=== PATIENT | male | born 1965 | race Caucasian/White ===

== ENCOUNTER 2023-06-11 08:06 | Outpatient (AMB) | payer BC, SELFPAY ==
--- NOTE | 2023-06-11 08:08 | MHC.OFFWIV ---
Intake Vital Signs 06/11/23 08:09 Height 5 ft 9 in Weight 204 lb BMI 30.1 BP 120/80 Blood Pressure Location Rt brachial Position Sitting Pulse 70 Pulse Source Pulse Oximeter Pulse Oximetry (%) 97 Oxygen Delivery Method Room Air Intake Visit Reasons: EP Abscess back of neck Intake Note: Patient here for abcess on right side of back of the head that has been present for about 1 week. Patient Tobacco Use Status: Former Tobacco user Allergies No Known Allergies Allergy (Verified 06/11/23 08:15) Medication List - Last Reconciled 06/11/23 by Jeffry Coronel MD No Known Home Meds Do you need a note to return to daycare/school/sports/work: No HPI EP Abscess back of neck HPI Details 57-year-old male presents to the office for a sick visit. Patient has a swelling on the back of the neck. It has been present for the past week. Patient has had a small pimple in that area for a couple years. The swelling has been painful since the past week. PFSH Social History Patient Tobacco Use Status: Former Tobacco user Physical Exam Vital Signs: Last Vital Signs Pulse 70 06/11/23 08:09 BP 120/80 06/11/23 08:09 Pulse Ox 97 06/11/23 08:09 Oxygen Delivery Method Room Air 06/11/23 08:09 BMI result Body Mass Index 30.1 Skin Other: Posterior surface of the neck, in the scalp area. Three centimetres injury rated area, no fluctuation. , slightly tender to touch. Assessment & Plan Assessment & Plan (1) Cellulitis of scalp: Code(s): L03.811 - Cellulitis of head [any part, except face] Plan: Antibiotics called in. Patient was advised to use warm compress. If symptoms do not improve to follow-up here. Coding Level of Care Code Est Pt Level 3 (58123) Diagnoses Cellulitis of scalp L03.811
[2023-06-11 08:09] VITALS: BP 120/80; PULSE 70; O2SAT 97; BMI 30.1
== END 2023-06-11 08:37 | disposition home or self-care (01) ==
PROVIDERS: PCP Nurse Practitioner Family; Visit Provider Internal Medicine
DX: L03.811 Cellulitis of head [any part, except face] (principal)
CPT/HCPCS: 99213

== ENCOUNTER 2023-06-18 08:00 | Outpatient (AMB) | payer BC, SELFPAY ==
[2023-06-18 08:02] VITALS: BP 130/78; PULSE 76; TEMP 36.6; O2SAT 97; BMI 30.3
--- NOTE | 2023-06-18 08:02 | MHC.OFFWIV ---
Intake Vital Signs 06/18/23 08:02 Height 5 ft 9 in Weight 205 lb 2 oz BMI 30.3 BP 130/78 Blood Pressure Location Lt brachial Position Sitting Pulse 76 Pulse Source Pulse Oximeter Temp 97.9 F Temp Source Temporal Artery Scan Pulse Oximetry (%) 97 Intake Visit Reasons: EP, abscess on back of neck, not getting better Intake Note: pt is here for c/o abscess on back of neck not getting better Patient Tobacco Use Status: Former Tobacco user Allergies No Known Allergies Allergy (Verified 06/18/23 08:26) Do you need a note to return to daycare/school/sports/work: Yes HPI EP, abscess on back of neck, not getting better HPI Details 57-year-old male presents to the office for a sick visit.. Patient reports that antibiotics were not of much help and the swelling has gotten bigger. Painful to touch. PFSH Social History Patient Tobacco Use Status: Former Tobacco user Physical Exam Vital Signs: Last Vital Signs Temp 97.9 F 06/18/23 08:02 Pulse 76 06/18/23 08:02 BP 130/78 06/18/23 08:02 Pulse Ox 97 06/18/23 08:02 BMI result Body Mass Index 30.3 Neck Other: Swelling below the scalp in the occipital area. Slightly fluctuant now. Assessment & Plan Assessment & Plan (1) Cellulitis of scalp: Code(s): L03.811 - Cellulitis of head [any part, except face] Plan: Symptoms are mostly due to the abscess. A surgical appointment was obtained for the patient. Patient was to proceed there immediately. Orders: Referrals General Surgery Referral L02.11 - Cutaneous abscess of neck Medications: New pantoprazole 40 mg PO DAILY 30 tabs 0RF Coding Level of Care Code Est Pt Level 3 (70027) Diagnoses Cellulitis of scalp L03.811
== END 2023-06-18 08:48 | disposition home or self-care (01) ==
PROVIDERS: PCP Nurse Practitioner Family; Visit Provider Internal Medicine
DX: L03.811 Cellulitis of head [any part, except face] (principal)
CPT/HCPCS: 99213

== ENCOUNTER 2023-06-18 08:58 | Outpatient (AMB) | payer BC, SELFPAY ==
--- NOTE | 2023-06-18 09:04 | MHC.OFFVIS ---
Intake Vital Signs 06/18/23 09:05 Height 5 ft 9 in Weight 205 lb BMI 30.3 BP 130/78 Blood Pressure Location Lt brachial Position Sitting Pulse 76 Intake Visit Reasons: abscess of neck Intake Note: This patient presents for an assessment for abscess of the posterior neck. Patient c/o; reports completed one round of cephalexin not effective, reports draining. [employer]ending Machine [employer] Required: No Accompanied by: Self / Same As Patient Allergies No Known Allergies Allergy (Verified 06/18/23 09:37) Medication List - Last Reconciled 06/18/23 by Liborio Mejia MD pantoprazole 40 mg PO DAILY HPI abscess of neck HPI Details 57-year-old male referred for an abscess of the neck. He says he has had a little lump on the back of his neck for many years. About 3 weeks ago this started to become swollen. He describes some pain, tenderness and redness. He went to his primary care physician last week and was started on antibiotics. However, he says that this swelling and redness he had not improved and actually was getting worse. He went to a walk-in clinic today and was referred to me. He is not a diabetic. He denies a history of bug bites or trauma to the area. [facility] Medical History (Updated 06/18/23 @ 09:52 by Liborio Mejia MD) Neck abscess Social History Patient Tobacco Use Status: Former Tobacco user Review of Systems Const Denies chills and Denies fever(s) Card Denies chest pain, Denies dyspnea and Denies dyspnea on exertion Resp Denies cough, Denies dyspnea and Denies dyspnea on exertion GI Denies hematochezia and Denies change in bowel habits Denies hematuria and Denies difficulty urinating Musc Denies back pain and Denies limited range of motion Neuro Denies focal weakness and Denies convulsions Psych Denies depression and Denies mood swings Physical Exam Vital Signs: Last Vital Signs Pulse 76 06/18/23 09:05 BP 130/78 06/18/23 09:05 BMI result Body Mass Index 30.3 Const General: comfortable and no acute distress Orientation/consciousness: patient oriented x3 Neck Other: On the posterior neck near the occipital area is note of a fluctuant mass, about 0.5 cm in diameter, with overlying redness, tenderness Neck: Yes no lymphadenopathy Resp Auscultation: clear to auscultation bilaterally Cardio Rhythm: regular rhythm GI Palpation (GI): Soft to palpation, nontender and no guarding Neuro General: patient oriented x3 Office Procedures I&D Drain Details: He was placed in prone position. The area of the cyst was prepped and draped. Lidocaine 1% was used for local anesthesia. I used a blade 11 to make an incision on the skin overlying the area of fluctuance. This was carried down until an abscess cavity was entered. Significant amounts of pus was drained. I bluntly debrided the cavity using Q-tips. I applied a light packing and dressings. He tolerated procedure well. There were no immediate complications. There was minimal blood loss. 52489-Vzfqvfzu of Skin Abscess, complex All charges added?: Procedure code (CPT) selection complete Assessment & Plan Assessment & Plan (1) Neck abscess: Code(s): L02.11 - Cutaneous abscess of neck Plan: He has a neck abscess as described above near the scalp line on the occipital area. This is likely from an infected epidermal cyst. I explained him that we need to proceed with I& D. I discussed the technique of this procedure with him. I reviewed the risks including but not limited to bleeding and further infections, as well as benefits and alternatives. I&D was done as dictated and large amounts of pus was drained. He tolerated procedure well. Dressings were applied. I explained to him wound care. He is to changes dressings daily starting tomorrow I told him to come back to the office if he notices worsening or non improvement. Coding Level of Care Code New Pt Level 3 (81505) Diagnoses Neck abscess L02.11 CPT Codes I&D Drain - Drain 2: 85632-Vbkqirif of Skin Abscess, complex ([id number])
[2023-06-18 09:05] VITALS: BP 130/78; PULSE 76; BMI 30.3
== END 2023-06-18 09:49 | disposition home or self-care (01) ==
PROVIDERS: PCP Nurse Practitioner Family; Visit Provider Surgery
DX: L02.11 Cutaneous abscess of neck (principal)
CPT/HCPCS: 10060; 99203

== ENCOUNTER → 2023-06-18 08:58 | Outpatient (BNVA) | payer BC, SELFPAY | PROVIDERS: PCP Nurse Practitioner Family; Visit Provider Surgery | DX: L02.11 Cutaneous abscess of neck (principal) | CPT/HCPCS: 10060 ==

== ENCOUNTER 2023-08-15 10:33 | Outpatient (AMB) | payer OTHER, SELFPAY ==
[2023-08-15 11:02] VITALS: BP 120/76; PULSE 69; TEMP 36.1; O2SAT 96; BMI 29.4
--- NOTE | 2023-08-15 11:02 | MHC.OFFWIV ---
Intake Vital Signs 08/15/23 11:02 Height 5 ft 9 in Weight 199 lb BMI 29.4 BP 120/76 Blood Pressure Location Lt brachial Position Sitting Pulse 69 Pulse Source Pulse Oximeter Temp 96.9 F Temp Source Temporal Artery Scan Pulse Oximetry (%) 96 Oxygen Delivery Method Room Air Intake Visit Reasons: EST/lower left abd pain (lobby) Intake Note: pt is here today for lower lft abd pain started sunday Patient Tobacco Use Status: Former Tobacco user Allergies No Known Allergies Allergy (Verified 08/15/23 11:26) Medication List - Last Reconciled 08/15/23 by Jeffry Coronel MD pantoprazole 40 mg PO DAILY Do you need a note to return to daycare/school/sports/work: No HPI EST/lower left abd pain (lobby) HPI Details 57-year-old male presents to the office for a sick visit. Patient is reporting symptoms of lower abdominal pain. Pain is mostly in the left lower side and started 2 days ago. No nausea vomiting or diarrhea. Having regular bowel movements. History of colitis in the past. [facility] Medical History (Updated 06/18/23 @ 09:52 by Liborio Mejia MD) Neck abscess Social History Patient Tobacco Use Status: Former Tobacco user Physical Exam Vital Signs: Last Vital Signs Temp 96.9 F 08/15/23 11:02 Pulse 69 08/15/23 11:02 BP 120/76 08/15/23 11:02 Pulse Ox 96 08/15/23 11:02 Oxygen Delivery Method Room Air 08/15/23 11:02 BMI result Body Mass Index 29.4 Const General: cooperative and healthy appearing Nutritional Appearance: well nourished Orientation/consciousness: patient oriented x3 Limitations: no limitations HEENT Head: Yes normal to inspection Eyes General: appearance normal, both eyes and all related structures Neck Neck: Yes normal visual inspection Chest Chest palpation & inspection: normal palpation of entire chest wall Resp Effort & Inspection: normal respiratory effort GI Other: Abdomen: Bowel sounds sluggish. Sharp pain in the left lower quadrant. No tenderness. Neuro General: patient oriented x3 Assessment & Plan Assessment & Plan (1) Abdominal pain: Code(s): R10.9 - Unspecified abdominal pain Plan: Patient was advised to proceed to the ER to get a CT scan. Coding Level of Care Code Est Pt Level 3 (56090) Diagnoses Abdominal pain R10.9
== END 2023-08-15 11:37 | disposition home or self-care (01) ==
LOC: HO.HMGWI 10:33
PROVIDERS: PCP Nurse Practitioner Family
DX: R10.9 Unspecified abdominal pain (principal)
CPT/HCPCS: 99213